=== PATIENT | female | born 1980 ===

== ENCOUNTER 2017-02-19 13:35 | Emergency (ER) | payer MEDICAID, OTHER ==
[2017-02-19 13:45] VITALS: BP 107/63; PULSE 67; RESP 16; TEMP 98.3; O2SAT 100
--- NOTE | 2017-02-19 14:27 | ED PDOC ---
HPI: Headache Time Seen by Provider: 02/19/17 13:46 Chief Complaint (Nursing): Headache Chief Complaint (Provider): Headache History Per: Patient History/Exam Limitations: no limitations Onset/Duration Of Symptoms: Days (x3 days) Current Symptoms Are (Timing): Still Present Additional Complaint(s): 36 y/o female presents to the emergency department with a complaint of a left- sided facial pain associated with a headache x3 days. States pain worsens with cold air or bending down. Denies taking medications for the relief of pain, fever, or runny nose. PMD: Dr. Salinas Atkins MD Past Medical History Reviewed: Historical Data, Nursing Documentation, Vital Signs Vital Signs: Last Vital Signs Temp 98.3 F 02/19/17 13:42 Pulse 67 02/19/17 13:42 Resp 16 02/19/17 13:42 BP 107/63 02/19/17 13:42 Pulse Ox 100 02/19/17 13:42 - Medical History PMH: Depression Denies: HIV, HTN, Pancreatitis, Chronic Kidney Disease, Sexually Transmitted Disease Comment Only: Seizures (denies) - Family History Family History: States: Unknown Family Hx - Social History Current smoker - smoking cessation education provided: No Alcohol: Occasional Drugs: Denies - Immunization History Hx Tetanus Toxoid Vaccination: No Hx Influenza Vaccination: No Hx Pneumococcal Vaccination: No - Home Medications Home Medications: Ambulatory Orders Medication Instructions Recorded Naproxen [Naprosyn] 1 tab PO BID PRN #20 tab 09/14/16 Amoxicillin/Clavulanate [Augmentin 1 tab PO BID #10 tab 02/19/17 875 MG-125 MG] Ibuprofen [Motrin] 600 mg PO Q6H PRN #20 tab 02/19/17 - Allergies Allergies/Adverse Reactions: Allergies Allergy/AdvReac Type Severity Reaction Status Date / Time No Known Allergies Allergy Verified 02/19/17 13:41 Review of Systems ROS Statement: Except As Marked, All Systems Reviewed And Found Negative Constitutional: Negative for: Fever ENT: Negative for: Nose Discharge Neurological: Positive for: Headache (with left-sided facial pain) Physical Exam - Reviewed Nursing Documentation Reviewed: Yes Vital Signs Reviewed: Yes - Physical Exam Appears: Positive for: Non-toxic, No Acute Distress Head Exam: Positive for: ATRAUMATIC, NORMAL INSPECTION, NORMOCEPHALIC Skin: Positive for: Normal Color, Warm, Dry ENT: Positive for: Normal ENT Inspection, Other (Tenderness to palpations of the left maxillary region ) Neck: Positive for: Normal, Supple Cardiovascular/Chest: Positive for: Regular Rate, Rhythm. Negative for: Murmur Respiratory: Positive for: Normal Breath Sounds. Negative for: Accessory Muscle Use, Respiratory Distress Neurologic/Psych: Positive for: Alert, Oriented - ECG O2 Sat by Pulse Oximetry: 100 (RA) Pulse Ox Interpretation: Normal Medical Decision Making Medical Decision Making: Time: 13:46 Initial impression: Facial Pain and Headache Scribe Attestation: Documented by Che Rodriguez, acting as a scribe for Delma Myrick MD. Provider Scribe Attestation: All medical record entries made by the Scribe were at my direction and personally dictated by me. I have reviewed the chart and agree that the record accurately reflects my personal performance of the history, physical exam, medical decision making, and the department course for this patient. I have also personally directed, reviewed, and agree with the discharge instructions and disposition. Disposition - Clinical Impression Clinical Impression: Acute sinusitis - Disposition Referrals: [facility] [Outside] Condition: STABLE Prescriptions: Amoxicillin/Clavulanate [Augmentin 875 MG-125 MG] 1 tab PO BID #10 tab Ibuprofen [Motrin] 600 mg PO Q6H PRN #20 tab PRN Reason: Pain, Moderate (4-7) Instructions: Sinusitis (ED) Print Language: [place]
== END 2017-02-19 14:35 | disposition home or self-care (01) ==
LOC: H.ER 13:35
DX: J01.90 Acute sinusitis, unspecified (principal)